=== PATIENT | male | born 2000 | race Two or more races ===

== ENCOUNTER 2021-09-11 21:11 | Emergency (ER) | payer OTHER ==
[~2021-09-11] VITALS: Ht 172.7 cm; Wt 97.1 kg
[2021-09-12 02:00] VITALS: BP 131/76
== END 2021-09-12 02:08 | disposition home or self-care (01) ==
LOC: ER 21:15
DX: S43.402A Unspecified sprain of left shoulder joint, initial encounter (principal); S43.401A Unspecified sprain of right shoulder joint, initial encounter; S09.8XXA Other specified injuries of head, initial encounter; M62.838 Other muscle spasm; W18.39XA Other fall on same level, initial encounter; Y93.39 Activity, other involving climbing, rappelling and jumping off; Y92.89 Other specified places as the place of occurrence of the external cause; Y99.8 Other external cause status
CPT/HCPCS: 70450; 72125; 73030